=== PATIENT | male | born 1960 | race Caucasian/White ===

== ENCOUNTER 2017-06-11 10:39 | Emergency (ER) | payer OTHER ==
[~2017-06-11] VITALS: Ht 167.6 cm; Wt 73.0 kg
[~2017-06-11 10:39] MED LIST: RANITIDINE; SIMVASTATIN; TYL325 PO
[2017-06-11 10:43] VITALS: Ht 167.6 cm; Wt 73.0 kg
[2017-06-11] MEDS ORDERED: HYDROCODONE/APAP (5/325) TAB PO ONE (12:00)
--- NOTE | 2017-06-11 12:25 | RADRPT ---
PROCEDURE: XR Left Foot. CLINICAL INDICATION: Trauma due to a heavy metal pipe falling on the foot. Left foot pain. TECHNIQUE: Three views. Frontal, lateral, and oblique. COMPARISON: 07/02/2009. FINDINGS: There is an acute oblique fracture of the distal shaft of the fourth metatarsal. There is no signifi cant displacement or angulation. There is soft tissue swelling overlying the fracture. There is no other fracture and there is no dislocation. Articular surfaces are intact. There is no lytic or blastic lesion. There is no radiopaque foreign body. IMPRESSION: 1. Acute oblique nondisplaced fracture of the distal shaft of the fourth metatarsal with overlying soft tissue swelling. 2. Otherwise unremarkable images of the left foot. RPTAT: QQ .Jesus Sanches MD, Date Time Electronically viewed and signed by .Jesus Sanches MD, on 06/11/2017 12:25 .R/
--- NOTE | 2017-06-11 12:28 | ERD ---
ER Documentation Chief Complaint Chief Complaint LT FOOT PAIN S/P HEAVY TOOL FELL ON IT X 2 DAYS AGO @ WORK HPI This is a 56-year-old male who presents the emergency department today complaining of left foot pain after dropping a heavy metal pipe on top of his foot 2 days ago. States that he took Tylenol for pain. States he has pain with walking. Denies any fevers or chills. ROS All systems reviewed and are negative except as per history of present illness. Medications Home Meds Active Scripts Naproxen* (Naprosyn*) 500 Mg Tablet, 500 MG PO BID Y for PAIN AND/OR INFLAMMATION, #30 TAB Prov:TIGIST ALVAREZ PA-C 06/11/17 Hydrocodone/Acetaminophen ([place] 5-325 Tablet) 1 Each Tablet, 1 TAB PO Q6H Y for PAIN, #12 TAB Prov:TIGIST ALVAREZ PA-C 06/11/17 Reported Medications Acetaminophen* (Acetaminophen*) 325 Mg Tab, 325 MG PO 09/17/12 Simvastatin 03/17/10 Ranitidine 03/17/10 Allergies Allergies: Coded Allergies: No Known Allergies (Verified Allergy, Mild, 11/08/10) PMhx/Soc History of Surgery: No Anesthesia Reaction: No Hx Neurological Disorder: No Hx Respiratory Disorders: No Hx Cardiac Disorders: No Hx Psychiatric Problems: No Hx Miscellaneous Medical Probl: No Hx Alcohol Use: No Hx Substance Use: No Hx Tobacco Use: No Physical Exam Vitals Vital Signs Date Time Temp Pulse Resp B/P Pulse Ox O2 Delivery O2 Flow Rate FiO2 06/11/17 10:43 97.9 62 16 115/73 98 Physical Exam Const: NAD Head: Atraumatic Eyes: Normal Conjunctiva ENT: Normal External Ears, Nose and Mouth. Neck: Full range of motion..~ No meningismus. Resp: Clear to auscultation bilaterally Cardio: Regular rate and rhythm, no murmurs Abd: Soft, non tender, non distended. Normal bowel sounds Skin: No petechiae or rashes MSK: With no obvious deformity. Moderate effusion. Ecchymosis into digits. He is tenderness palpation over third fourth and fifth metatarsals. Pulses 2+. Distal neurovascularly intact. Nontender medial and lateral malleolus. Neur: Awake and alert Psych: Normal Mood and Affect Results 24 hrs Current Medications Medications (Trade) Dose Ordered Sig/Carmen Route PRN Reason Start Time Stop Time Status Last Admin Dose Admin Acetaminophen/ Hydrocodone Bitart ([place] (5/645)) 1 tab ONCE ONCE PO 06/11/17 12:00 06/11/17 12:01 DC 06/11/17 12:17 DIAGNOSTIC IMAGING REPORT Patient: TARAN CORONEL : 1960 Age: 56 Sex: M MR #: [id number] DOS: 06/11/17 1148 Ordering MD: TIGIST ALVAREZ PA-C [facility] Room[facility]Bed: PROCEDURE: XR Left Foot. CLINICAL INDICATION: Trauma due to a heavy metal pipe falling on the foot. Left foot pain. TECHNIQUE: Three views. Frontal, lateral, and oblique. COMPARISON: 07/02/2009. FINDINGS: There is an acute oblique fracture of the distal shaft of the fourth metatarsal. There is no significant displacement or angulation. There is soft tissue swelling overlying the fracture. There is no other fracture and there is no dislocation. Articular surfaces are intact. There is no lytic or blastic lesion. There is no radiopaque foreign body. IMPRESSION: 1. Acute oblique nondisplaced fracture of the distal shaft of the fourth metatarsal with overlying soft tissue swelling. 2. Otherwise unremarkable images of the left foot. RPTAT: QQ .Jesus Sanches MD, MD Date Time Electronically viewed and signed by .Jesus Sanches MD, MD on 06/11/2017 12:25 .R/ CC: TIGIST ALVAREZ PA-C Procedures/MDM This is a 56-year-old male who presents the emergency department today complaining of left foot pain after dropping a heavy pipe on top of it while he was at work 2 days ago. Given the trauma and physical exam and evidence of bruising I did obtain images. Radiology report images of the left foot show an acute oblique nondisplaced fracture of the distal shaft of the fourth metatarsal with overlying soft tissue swelling. Otherwise unremarkable. Symptoms at this time is consistent with left foot fracture. Patient was given [place] here in the emergency department. He will given a prescription for short course of [place], Naprosyn for home. He was placed in a splint and given crutches to help ambulate. He was distally neurovascularly intact pre-and post splint application. At this time the patient is stable for discharge and outpatient management. Patient should follow up with their PCP in the next 1-2 days. They may return to the emergency department sooner for any persistent or worsening of symptoms. Patient understood and agreed with the plan. Departure Diagnosis: Primary Impression: Foot fracture, left Encounter type: initial encounter Fracture type: closed Qualified Code: S92.902A - Closed fracture of left foot, initial encounter Condition: Fair TIGIST ALVAREZ PA-C Jun 11, 2017 12:28
--- NOTE | 2017-06-11 12:28 | ERD ---
ER Documentation Chief Complaint Chief Complaint LT FOOT PAIN S/P HEAVY TOOL FELL ON IT X 2 DAYS AGO @ WORK HPI This is a 56-year-old male who presents the emergency department today complaining of left foot pain after dropping a heavy metal pipe on top of his foot 2 days ago. States that he took Tylenol for pain. States he has pain with walking. Denies any fevers or chills. ROS All systems reviewed and are negative except as per history of present illness. Medications Home Meds Active Scripts Naproxen* (Naprosyn*) 500 Mg Tablet, 500 MG PO BID Y for PAIN AND/OR INFLAMMATION, #30 TAB Prov:TIGIST ALVAREZ PA-C 06/11/17 Hydrocodone/Acetaminophen ([place] 5-325 Tablet) 1 Each Tablet, 1 TAB PO Q6H Y for PAIN, #12 TAB Prov:TIGIST ALVAREZ PA-C 06/11/17 Reported Medications Acetaminophen* (Acetaminophen*) 325 Mg Tab, 325 MG PO 09/17/12 Simvastatin 03/17/10 Ranitidine 03/17/10 Allergies Allergies: Coded Allergies: No Known Allergies (Verified Allergy, Mild, 11/08/10) PMhx/Soc History of Surgery: No Anesthesia Reaction: No Hx Neurological Disorder: No Hx Respiratory Disorders: No Hx Cardiac Disorders: No Hx Psychiatric Problems: No Hx Miscellaneous Medical Probl: No Hx Alcohol Use: No Hx Substance Use: No Hx Tobacco Use: No Physical Exam Vitals Vital Signs Date Time Temp Pulse Resp B/P Pulse Ox O2 Delivery O2 Flow Rate FiO2 06/11/17 10:43 97.9 62 16 115/73 98 Physical Exam Const: NAD Head: Atraumatic Eyes: Normal Conjunctiva ENT: Normal External Ears, Nose and Mouth. Neck: Full range of motion..~ No meningismus. Resp: Clear to auscultation bilaterally Cardio: Regular rate and rhythm, no murmurs Abd: Soft, non tender, non distended. Normal bowel sounds Skin: No petechiae or rashes MSK: With no obvious deformity. Moderate effusion. Ecchymosis into digits. He is tenderness palpation over third fourth and fifth metatarsals. Pulses 2+. Distal neurovascularly intact. Nontender medial and lateral malleolus. Neur: Awake and alert Psych: Normal Mood and Affect Results 24 hrs Current Medications Medications (Trade) Dose Ordered Sig/Carmen Route PRN Reason Start Time Stop Time Status Last Admin Dose Admin Acetaminophen/ Hydrocodone Bitart ([place] (5/832)) 1 tab ONCE ONCE PO 06/11/17 12:00 06/11/17 12:01 DC 06/11/17 12:17 DIAGNOSTIC IMAGING REPORT Patient: TARAN CORONEL : 1960 Age: 56 Sex: M MR #: [id number] DOS: 06/11/17 1148 Ordering MD: TIGIST ALVAREZ PA-C Location: [facility] Room/Bed: PROCEDURE: XR Left Foot. CLINICAL INDICATION: Trauma due to a heavy metal pipe falling on the foot. Left foot pain. TECHNIQUE: Three views. Frontal, lateral, and oblique. COMPARISON: 07/02/2009. FINDINGS: There is an acute oblique fracture of the distal shaft of the fourth metatarsal. There is no significant displacement or angulation. There is soft tissue swelling overlying the fracture. There is no other fracture and there is no dislocation. Articular surfaces are intact. There is no lytic or blastic lesion. There is no radiopaque foreign body. IMPRESSION: 1. Acute oblique nondisplaced fracture of the distal shaft of the fourth metatarsal with overlying soft tissue swelling. 2. Otherwise unremarkable images of the left foot. RPTAT: QQ .Jesus Sanches MD, MD Date Time Electronically viewed and signed by .Jesus Sanches MD, MD on 06/11/2017 12:25 .R/ CC: TIGIST ALVAREZ PA-C Procedures/MDM This is a 56-year-old male who presents the emergency department today complaining of left foot pain after dropping a heavy pipe on top of it while he was at work 2 days ago. Given the trauma and physical exam and evidence of bruising I did obtain images. Radiology report images of the left foot show an acute oblique nondisplaced fracture of the distal shaft of the fourth metatarsal with overlying soft tissue swelling. Otherwise unremarkable. Symptoms at this time is consistent with left foot fracture. Patient was given [place] here in the emergency department. He will given a prescription for short course of [place], Naprosyn for home. He was placed in a splint and given crutches to help ambulate. He was distally neurovascularly intact pre-and post splint application. At this time the patient is stable for discharge and outpatient management. Patient should follow up with their PCP in the next 1-2 days. They may return to the emergency department sooner for any persistent or worsening of symptoms. Patient understood and agreed with the plan. Departure Diagnosis: Primary Impression: Foot fracture, left Encounter type: initial encounter Fracture type: closed Qualified Code: S92.902A - Closed fracture of left foot, initial encounter Condition: Fair TIGIST ALVAREZ PA-C Jun 11, 2017 12:28
--- NOTE | 2017-06-11 12:28 | ERD ---
ER Documentation Chief Complaint Chief Complaint LT FOOT PAIN S/P HEAVY TOOL FELL ON IT X 2 DAYS AGO @ WORK HPI This is a 56-year-old male who presents the emergency department today complaining of left foot pain after dropping a heavy metal pipe on top of his foot 2 days ago. States that he took Tylenol for pain. States he has pain with walking. Denies any fevers or chills. ROS All systems reviewed and are negative except as per history of present illness. Medications Home Meds Active Scripts Naproxen* (Naprosyn*) 500 Mg Tablet, 500 MG PO BID Y for PAIN AND/OR INFLAMMATION, #30 TAB Prov:TIGIST ALVAREZ PA-C 06/11/17 Hydrocodone/Acetaminophen ([place] 5-325 Tablet) 1 Each Tablet, 1 TAB PO Q6H Y for PAIN, #12 TAB Prov:TIGIST ALVAREZ PA-C 06/11/17 Reported Medications Acetaminophen* (Acetaminophen*) 325 Mg Tab, 325 MG PO 09/17/12 Simvastatin 03/17/10 Ranitidine 03/17/10 Allergies Allergies: Coded Allergies: No Known Allergies (Verified Allergy, Mild, 11/08/10) PMhx/Soc History of Surgery: No Anesthesia Reaction: No Hx Neurological Disorder: No Hx Respiratory Disorders: No Hx Cardiac Disorders: No Hx Psychiatric Problems: No Hx Miscellaneous Medical Probl: No Hx Alcohol Use: No Hx Substance Use: No Hx Tobacco Use: No Physical Exam Vitals Vital Signs Date Time Temp Pulse Resp B/P Pulse Ox O2 Delivery O2 Flow Rate FiO2 06/11/17 10:43 97.9 62 16 115/73 98 Physical Exam Const: NAD Head: Atraumatic Eyes: Normal Conjunctiva ENT: Normal External Ears, Nose and Mouth. Neck: Full range of motion..~ No meningismus. Resp: Clear to auscultation bilaterally Cardio: Regular rate and rhythm, no murmurs Abd: Soft, non tender, non distended. Normal bowel sounds Skin: No petechiae or rashes MSK: With no obvious deformity. Moderate effusion. Ecchymosis into digits. He is tenderness palpation over third fourth and fifth metatarsals. Pulses 2+. Distal neurovascularly intact. Nontender medial and lateral malleolus. Neur: Awake and alert Psych: Normal Mood and Affect Results 24 hrs Current Medications Medications (Trade) Dose Ordered Sig/Caremn Route PRN Reason Start Time Stop Time Status Last Admin Dose Admin Acetaminophen/ Hydrocodone Bitart ([place] (5/943)) 1 tab ONCE ONCE PO 06/11/17 12:00 06/11/17 12:01 DC 06/11/17 12:17 DIAGNOSTIC IMAGING REPORT Patient: TARAN CORONEL : 1960 Age: 56 Sex: M MR #: [id number] DOS: 06/11/17 1148 Ordering MD: TIGIST ALVAREZ PA-C Location: [facility] Room/Bed: PROCEDURE: XR Left Foot. CLINICAL INDICATION: Trauma due to a heavy metal pipe falling on the foot. Left foot pain. TECHNIQUE: Three views. Frontal, lateral, and oblique. COMPARISON: 07/02/2009. FINDINGS: There is an acute oblique fracture of the distal shaft of the fourth metatarsal. There is no significant displacement or angulation. There is soft tissue swelling overlying the fracture. There is no other fracture and there is no dislocation. Articular surfaces are intact. There is no lytic or blastic lesion. There is no radiopaque foreign body. IMPRESSION: 1. Acute oblique nondisplaced fracture of the distal shaft of the fourth metatarsal with overlying soft tissue swelling. 2. Otherwise unremarkable images of the left foot. RPTAT: QQ .Jesus Sanches MD, MD Date Time Electronically viewed and signed by .Jesus Sanches MD, MD on 06/11/2017 12:25 .R/ CC: TIGIST ALVAREZ PA-C Procedures/MDM This is a 56-year-old male who presents the emergency department today complaining of left foot pain after dropping a heavy pipe on top of it while he was at work 2 days ago. Given the trauma and physical exam and evidence of bruising I did obtain images. Radiology report images of the left foot show an acute oblique nondisplaced fracture of the distal shaft of the fourth metatarsal with overlying soft tissue swelling. Otherwise unremarkable. Symptoms at this time is consistent with left foot fracture. Patient was given [place] here in the emergency department. He will given a prescription for short course of [place], Naprosyn for home. He was placed in a splint and given crutches to help ambulate. He was distally neurovascularly intact pre-and post splint application. At this time the patient is stable for discharge and outpatient management. Patient should follow up with their PCP in the next 1-2 days. They may return to the emergency department sooner for any persistent or worsening of symptoms. Patient understood and agreed with the plan. Departure Diagnosis: Primary Impression: Foot fracture, left Encounter type: initial encounter Fracture type: closed Qualified Code: S92.902A - Closed fracture of left foot, initial encounter Condition: Fair TIGIST ALVAREZ PA-C Jun 11, 2017 12:28
[2017-06-11] MEDS ORDERED: NAPR-260 PO (12:51)
[2017-06-11] MEDS ORDERED: HYDR-906 PO (12:51)
[2017-06-11 13:08] VITALS: BP 137/86; PULSE 78; RESP 19; TEMP 98.5
== END 2017-06-11 13:10 | disposition home or self-care (01) ==
LOC: FTE 10:39
DX: S92.345A Nondisplaced fracture of fourth metatarsal bone, left foot, initial encounter for closed fracture (principal); W20.8XXA Other cause of strike by thrown, projected or falling object, initial encounter; Y92.9 Unspecified place or not applicable
CPT/HCPCS: 29515; 73630; Z7502; Z7610

== ENCOUNTER 2018-10-29 18:00 | Emergency (ER) | payer OTHER ==
[~2018-10-29] VITALS: Ht 167.6 cm; Wt 76.1 kg
[~2018-10-29 18:00] MED LIST changes: +HYDR-4011 PO; +NAPR-985 PO
[2018-10-29 18:08] VITALS: Ht 167.6 cm; Wt 76.1 kg
[2018-10-29] MEDS ORDERED: IBUPROFEN 800 MG TAB PO ONE (22:00)
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
[2018-10-29] MEDS ORDERED: IBUP800T48 PO (22:11)
[2018-10-29 22:44] VITALS: BP 111/84; PULSE 60; RESP 19
[2018-10-29] MEDS ORDERED: ISON300T18 PO (22:52)
[2018-10-29] MEDS ORDERED: VERA240T94 PO (22:52)
[2018-10-29] MEDS ORDERED: ALBU8.5H8 INH (22:52)
[2018-10-29] MEDS ORDERED: MTF1000T PO (22:52)
[2018-10-29] MEDS ORDERED: TAMS0.4C2 PO (22:52)
[2018-10-29] MEDS ORDERED: GLIM4TAB PO (22:52)
[2018-10-29] MEDS ORDERED: ATEN50TA PO (22:52)
[2018-10-29] MEDS ORDERED: BENA40TA56 PO (22:52)
[2018-10-29] MEDS ORDERED: ATOR20TA38 PO (23:02)
== END 2018-10-29 22:44 | disposition home or self-care (01) ==
LOC: E/R 18:00
DX: S80.01XA Contusion of right knee, initial encounter (principal); S13.9XXA Sprain of joints and ligaments of unspecified parts of neck, initial encounter; S39.012A Strain of muscle, fascia and tendon of lower back, initial encounter; E11.9 Type 2 diabetes mellitus without complications; V49.49XA Driver injured in collision with other motor vehicles in traffic accident, initial encounter
CPT/HCPCS: 99282